=== PATIENT | male | born 1975 | race Caucasian/White ===

== ENCOUNTER 2024-06-30 11:28 | Emergency (ER) | payer MEDICAID, OTHER ==
[~2024-06-30] VITALS: Ht 167.6 cm; Wt 63.6 kg
[~2024-06-30 11:28] MED LIST: RANI-655 PO
[2024-06-30 11:34] VITALS: O2SAT 97
[2024-06-30 12:27] VITALS: BP 147/97; PULSE 95; RESP 18; TEMP 36.9; O2SAT 97
== END 2024-06-30 12:26 | disposition home or self-care (01) ==
LOC: ER 11:28
DX: S90.32XA Contusion of left foot, initial encounter (principal); I10 Essential (primary) hypertension; E11.9 Type 2 diabetes mellitus without complications; Z98.890 Other specified postprocedural states; X58.XXXA Exposure to other specified factors, initial encounter; Y93.89 Activity, other specified; Y92.89 Other specified places as the place of occurrence of the external cause; Y99.8 Other external cause status
CPT/HCPCS: 99281

== ENCOUNTER 2024-08-18 15:59 | Emergency (ER) | payer OTHER ==
[~2024-08-18] VITALS: Ht 167.6 cm; Wt 67.0 kg
[2024-08-18 16:15] VITALS: O2SAT 100
[2024-08-18] MEDS ORDERED: MUPI1OIN4 TP (17:52)
[2024-08-18] MEDS ORDERED: LISI10TA26 MT (17:52)
[2024-08-18 18:20] VITALS: BP 152/81; PULSE 78; RESP 18; TEMP 36.8; O2SAT 98
== END 2024-08-18 18:21 | disposition home or self-care (01) ==
LOC: ER 15:59
DX: R21 Rash and other nonspecific skin eruption (principal); I10 Essential (primary) hypertension; F10.90 Alcohol use, unspecified, uncomplicated; Y90.9 Presence of alcohol in blood, level not specified
CPT/HCPCS: 99283

== ENCOUNTER 2024-10-06 15:34 | Emergency (ER) | payer OTHER ==
[~2024-10-06] VITALS: Ht 167.6 cm; Wt 63.0 kg
[~2024-10-06 15:34] MED LIST changes: +LISI10TA26 MT; +MUPI1OIN4 TP
[2024-10-06 16:03] VITALS: O2SAT 97
[2024-10-06] MEDS: LIDOCAINE HCL 1% 20ML VIAL INFIL ONE (17:49)
[2024-10-06] MEDS: BACITRACIN ZINC OINT UDPKT TOP STA (17:49)
[2024-10-06] MEDS ORDERED: IBUP-2028 MT (17:50)
[2024-10-06 18:19] VITALS: BP 172/95; PULSE 75; RESP 18; TEMP 36.8; O2SAT 97
== END 2024-10-06 18:21 | disposition home or self-care (01) ==
LOC: ER 15:34
DX: S61.512A Laceration without foreign body of left wrist, initial encounter (principal); I10 Essential (primary) hypertension; Z79.899 Other long term (current) drug therapy; Z87.891 Personal history of nicotine dependence; W27.8XXA Contact with other nonpowered hand tool, initial encounter; Y93.89 Activity, other specified; Y92.89 Other specified places as the place of occurrence of the external cause; Y99.8 Other external cause status
CPT/HCPCS: 12001; 99282

== ENCOUNTER 2024-10-19 15:37 | Emergency (ER) | payer OTHER ==
[~2024-10-19] VITALS: Ht 167.6 cm; Wt 60.0 kg
[~2024-10-19 15:37] MED LIST changes: +IBUP-2028 MT
[2024-10-19 15:46] VITALS: PULSE 89; RESP 18; O2SAT 99
[2024-10-19 15:49] VITALS: BP 144/89; TEMP 36.7; O2SAT 99
== END 2024-10-19 16:21 | disposition home or self-care (01) ==
LOC: ER 15:37
DX: S61.512D Laceration without foreign body of left wrist, subsequent encounter (principal); I10 Essential (primary) hypertension; Z79.899 Other long term (current) drug therapy; Z98.890 Other specified postprocedural states; X58.XXXD Exposure to other specified factors, subsequent encounter
CPT/HCPCS: 99282

== ENCOUNTER 2024-11-12 13:05 | Emergency (ER) | payer OTHER ==
[~2024-11-12] VITALS: Ht 167.6 cm; Wt 63.0 kg
[2024-11-12 13:15] VITALS: TEMP 36.7; O2SAT 97
[2024-11-12 15:00] LABS: BASOPHILS % 1.2 % (0.0-2.0); EOSINOPHILS % 1.1 % (0.0-5.0); HEMATOCRIT. 37.2 % (42.0-52.0); HEMOGLOBIN. 12.0 g/dL (14.0-18.0); LYMPHOCYTES % 25.7 % (20.0-50.0); MEAN PLATELET VOLUME 9.1 fl (7.4-10.4); MONOCYTES % 8.6 % (2.0-8.0); NEUTROPHILS % 63.4 % (40.0-76.0); PLATELET 109 x1000/uL (130-400); RED BLOOD CELL COUNT 4.54 mill/uL (4.7-6.1); RED CELL DISTRIBUTION WIDTH 16.5 % (11.6-14.6)
[2024-11-12 15:10] LABS: CREATININE 0.7 mg/dL (0.6-1.3); UREA NITROGEN BLOOD 5 mg/dL (9-23)
[2024-11-12] MEDS: POTASSIUM CHLORIDE 20MEQ TABLET SR PO ONE (15:22)
[2024-11-12 15:26] VITALS: BP 164/92; PULSE 86; RESP 16; O2SAT 99
== END 2024-11-12 15:27 | disposition home or self-care (01) ==
LOC: ER 13:05
DX: E87.6 Hypokalemia (principal); I10 Essential (primary) hypertension; Z79.899 Other long term (current) drug therapy
CPT/HCPCS: 36415; 80048; 85025; 99284